=== PATIENT | male | born 1970 | race Caucasian/White ===

== ENCOUNTER → 2020-04-02 | Outpatient (CLI) | payer BC ==
--- NOTE | 2020-04-02 09:36 | Diagnostic Imaging Report ---
INDICATION: Chronic scrotal pain, history of partial right epididymal resection. Scrotal sonography performed in the routine fashion, including color Doppler. On the right side, the testicle appear normal with normal color flow. Epididymal head is visualized and appears normal. There is no hydrocele or varicocele. On the left side, the testicle measured 4.8 x 2.1 x 3.1 cm. The left testicle appears sonographically normal with normal color-flow. The epididymis on the left side appeared normal. There is no hydrocele or varicocele. IMPRESSION: Unremarkable scrotal sonography. Patient claims to have had partial epididymectomy on the right side, what we see of the epididymis appears normal at this time. There was no other abnormal finding. Dictated by: Dictated on workstation # [id number]
== END ==
LOC: RAD 08:24
PROVIDERS: ATTEND Nurse Practitioner Family
DX: N50.819 Testicular pain, unspecified (principal); R35.0 Frequency of micturition; G56.03 Carpal tunnel syndrome, bilateral upper limbs; Z98.890 Other specified postprocedural states
CPT/HCPCS: 76870

== ENCOUNTER → 2022-09-08 | Outpatient (CLI) | payer BC, OTHER ==
[~2022-09-08] VITALS: Ht 175 cm; Wt 79.0 kg
[~2022-09-08] MED LIST: CATHETER FLUSH 10 ML SYR IVP PRN
[2022-09-08 12:02] VITALS: BP 148/89
--- NOTE | 2022-09-08 13:53 | NUCLEAR STRESS TEST ---
TREADMILL NUCLEAR STRESS TEST Date of procedure: 09/07/2022. Primary care provider: Shelton Ruvalcaba DO. Admitting physician: Karel Davis Jr., MD. INDICATION: Abnormal electrocardiogram. BASELINE ELECTROCARDIOGRAM: Sinus rhythm with possible old septal myocardial infarction. STRESS TEST PROCEDURE: The patient was exercised for a total of 8 minutes and 10 seconds of the standard David protocol achieving a maximum MET level of 9.9. The resting heart rate was 67 bpm and the peak heart rate was 158 bpm, which represents 93% of the maximum predicted heart rate. The resting blood pressure was 146/89 mmHg and the peak blood pressure was 187/105 mmHg. This represents a normal heart rate and a normal blood pressure response to exercise. The test was stopped due to target heart rate attained. There was no chest discomfort during the test. There were isolated premature ventricular complexes in recovery. There were no significant stress induced electrocardiogram changes. The patient exhibited excellent exercise capacity for age. NUCLEAR PROCEDURE: The patient was administered 10.2 mCi of intravenous techneti um 99m Tetrofosmin at rest for the rest images. The patient was subsequently administered 31.5 mCi of intravenous technetium 99 M Tetrofosmin at peak stress for the stress images. Following an appropriate wait after each injection, imaging was obtained. The images were subsequently processed and reformatted in the usual views. Gated imaging was obtained. The image quality was adequate with a mild degree of gastrointestinal attenuation artifact. CT attenuation correction was used as a adjunct to standard imaging. Both the corrected and uncorrected images were reviewed for interpretation. NUCLEAR RESULTS: There was a small, moderate intensity, distal septal and apical defect with no evidence of inducible ischemia. There was normal left ventricular chamber size with an end-diastolic volume of 112 mL and an end- systolic volume of 65 mL. There was no evidence of transient ischemic dilatation. The TID ratio was 0.97. There was mild global hypokinesis with a calculated ejection fraction of 42%. IMPRESSION: 1. Normal heart rate and blood pressure response to exercise. 2. There was no exercise-induced chest discomfort or electrocardiogram changes. 3. There were isolated premature ventricular complexes in recovery. 4. The patient exhibited excellent exercise capacity for age at 8 minutes and 10 seconds of the David protocol. 5. There was a small, moderate intensity, distal septal and apical defect with no evidence of inducible ischemia. 6. There was mild global hypokinesis with a calculated ejection fraction of 42%. 7. This is an abnormal result although represents a low risk for possible future coronary ischemic events. Certain portions of this document may have been dictated utilizing voice recognition technology. Inherent to this technology, typographical and grammatical errors may exist. As much as I am diligent to identify and correct these mistakes, some errors may remain in the document. KAREL DAVIS JR, MD Sep 08, 2022 13:53
== END ==
LOC: CARD 09:34
PROVIDERS: ATTEND Internal Medicine Cardiovascular Disease
DX: I51.7 Cardiomegaly (principal); I35.8 Other nonrheumatic aortic valve disorders
CPT/HCPCS: 78452; 93017; A9502; C8929; 93306